=== PATIENT | male | born 1985 | race African-American/Black ===

== ENCOUNTER 2016-08-23 22:55 | Emergency (ER) | payer BC ==
[~2016-08-23] VITALS: Ht 195.6 cm; Wt 153.9 kg
[2016-08-23 22:59] VITALS: TEMP 36.5; Ht 195.6 cm; Wt 153.9 kg
[2016-08-23] MEDS ORDERED: PROPARACAINE HCL 0.5% OP SOLN 15 ML BTL OP STA (23:05)
[2016-08-23] MEDS ORDERED: CIPROFLOXACIN HCL 0.3% OP SOLN 2.5 ML BTL OP STA (23:23)
[2016-08-23] MEDS ORDERED: FEXO1TAB46 PO (23:25)
[2016-08-23] MEDS ORDERED: CLR10 PO (23:25)
--- NOTE | 2016-08-23 23:43 | EMERGENCY ROOM VISIT NOTE ---
ED Visit Note First contact with patient: 23:05 CHIEF COMPLAINT: Eye pain HISTORY OF PRESENT ILLNESS: This 31 yo patient presents to the emergency department complaining of pain in the right eye pain after getting a finger to the eye playing basketball today. There has been a constant moderate pain and irritation, redness and tearing in the eye. There is a mild blurring of vision at times and light bothers the eye. The vision has not been decreased over all. The patient does not wear contacts. The patient rates the pain as moderate and 4/10. The patient has not had previous injuries to this eye. Tetanus shot is up to date. REVIEW OF SYSTEMS: A 6 system review of systems was completed with positives and pertinent negatives listed in the HPI. ALLERGIES:none MEDICATIONS:none PMH: none SOCIAL HISTORY: No drug use PHYSICAL EXAM: Vital Signs: Reviewed Nurse's notes, vital signs stable. Visual acuity reviewed from nursing. GENERAL: This is a pleasant male, in no acute distress, but who is uncomfortable from the eye problem. Well-developed well- nourished. EYES: The pupils are equal round and reactive to light and accommodation. EOMs are full and without tenderness. There is discharge of clear tears from the right eye which is injected. There is no foreign body visible under the eyelid even after lid eversion. Right conjunctiva is injected to the right lateral aspect without active bleeding with subconjunctival hemorrhage present Funduscopic exam reveals no hemorrhages, papilledema, or other abnormalities. No foreign body was seen embedded in the cornea under slit lamp exam. The cornea was clear and no hyphema was seen. Fluorescein uptake was observed with ultraviolet light significant for a corneal abrasion 8:00. EMERGENCY DEPARTMENT COURSE: I examined the patient. Alcaine 2 drops were placed in the patient's right eye. A slit lamp exam was performed as above. Ciloxan two drops was placed in the patient's right eye. The patient was discharged home in good condition. DIAGNOSIS: #1 Corneal abrasion of the right eye, #2 right subconjunctival hemorrhage DISCHARGE INSTRUCTIONS AND TREATMENT: Use Ciloxin two drops in right eye every two hours while awake for two days; then two drops every four hours while awake for 5 days. Oxycodone (OxyIR) 5mg: Take 1-2 pills every four hours for breakthrough pain. Avoid alcohol, operating machinery or dangerous equipment, working on ladders or roofs, DRIVING, or situations where being under the influence may be dangerous. It is recommended to use an [id number] stool softener such as Colace, 100mg twice daily while taking this medication to avoid constipation. Ibuprofen(Motrin, Advil) may be used for fever or pain. Use 600mg every six hours as needed. Take with food. Avoid using more than 2400mg in a 24 hour period. Do not use 2400mg per day for more than three consecutive days without physician direction. Prolonged inappropriate use can lead to stomach upset or ulcers. This medication can be taken if you need to drive, work, or perform activities which may be dangerous when taking narcotic pain medication. (AND/OR) Acetaminophen(Tylenol) may be used for fever or pain. Use 1000mg every six hours as needed. Avoid using more than 3000mg in a 24 hour period. This medication can be taken if you need to drive, work, or perform activities which may be dangerous when taking narcotic pain medication. Follow up with ophthalmology in 2-3 days for reevaluation. Call for an appointment. Return to the ED for increasing pain or changes in vision. Current/Historical Medications Scheduled Fexofenadine Hcl (Milana), 180 MG PO DAILY Loratadine (Claritin), 10 MG PO DAILY Allergies Coded Allergies: No Known Allergies (Unverified , 08/23/16) Vital Signs Date Time Temp Pulse Resp B/P (MAP) Pulse Ox O2 Delivery O2 Flow Rate FiO2 08/23/16 22:59 36.5 73 20 149/99 96 Room Air Departure Information Referrals No Doctor, Assigned (PCP) Patient Instructions [facility]
[2016-08-24] MEDS ORDERED: OXYCODONE IR HOME PACK PO ONE
[2016-08-24 00:18] VITALS: BP 141/91; PULSE 76; O2SAT 97
== END 2016-08-24 00:21 | disposition home or self-care (01) ==
LOC: C.EDB 22:57 → C.EDC 08-24 00:21
DX: S05.01XA Injury of conjunctiva and corneal abrasion without foreign body, right eye, initial encounter (principal); H11.31 Conjunctival hemorrhage, right eye; W50.0XXA Accidental hit or strike by another person, initial encounter; Y92.310 Basketball court as the place of occurrence of the external cause; Y93.67 Activity, basketball